=== PATIENT | male | born 1995 | race Hispanic/Latino ===

== ENCOUNTER 2025-01-12 21:50 | Emergency (ER) | payer BC, MEDICAID ==
[~2025-01-12] VITALS: Ht 170.2 cm; Wt 86.2 kg
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
[2025-01-12] MEDS: 0.9% NACL 500ML IV.SOLN 500 ML IV ONE (22:26)
[2025-01-12 22:34] LABS: BASOPHILS # (AUTO) 0.02 K/uL (0.00-0.20); BASOPHILS % (AUTO) 0.3 % (0.0-5.0); EOSINOPHILS # (AUTO) 0.03 K/uL (0.00-0.70); EOSINOPHILS % (AUTO) 0.5 % (0.0-8.0); HEMATOCRIT 41.9 % (42-54); IMMATURE GRANULOCYTE ABSOLUTE 0.02 K/uL (0-1); LYMPHOCYTES # (AUTO) 0.9 K/uL (1.0-4.8); LYMPHOCYTES % (AUTO) 15.3 % (21.0-51.0); MEAN CORPUSCULAR HGB CONC 34.1 g/dL (32.0-36.0); MONOCYTES # (AUTO) 0.6 K/uL (0.1-1.0); MONOCYTES % (AUTO) 9.6 % (3.0-13.0); NEUTROPHILS # (AUTO) 4.4 K/uL (1.8-7.7); PLATELET COUNT (AUTO) 312 K/uL (130-400); RED BLOOD CELL COUNT(AUTO) 4.76 MIL/uL (4.50-6.20); WHITE BLOOD COUNT (AUTO) 5.9 K/uL (4.8-10.8)
[2025-01-12 22:46] LABS: CREATININE 0.8 mg/dL (0.5-1.3); POTASSIUM 3.7 mmol/L (3.5-5.1)
[2025-01-12] MEDS: teTANUS/diphthERIA TOXOID [ADULT] 0.5 ML VIAL IM ONE (23:18)
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
--- NOTE | 2025-01-12 23:29 | HMCIMG ---
ANKLE COMP 3VWS RT HISTORY: Injury COMPARISON: None TECHNIQUE: 3 images of the right ankle were obtained. FINDINGS: Nondisplaced oblique fracture is seen of the distal fibula. Soft tissue swelling is seen. IMPRESSION: 1. Findings as described above.
[2025-01-12] MEDS: AMOX/CLAV 875/125MG TAB PO ONE (23:33)
[2025-01-13 00:15] VITALS: BP 112/65; PULSE 98; RESP 18; TEMP 98.5; O2SAT 99
--- NOTE | 2025-01-13 00:18 | NUR ---
SHORT POSTERIOR SPLINT APPLIED TO RLE, SENSATION INTACT, NEUROVASCULAR STATUS REMAINS AT BASELINE, CAP REFILL LESS THAN 3 SECONDS, DENIES PAIN SP SPLINT APPLICATION, SKIN PINK WARM AND DRY. EDUCATION PROVIDED TO PATIENT REGARDING SPINT AFTER CARE AND THE USE OF CRUTCHES. PT STATES HE HAS CRUTCHES AT HOME TO USE ONCE RELEASED FROM [facility]. CONTINUES IN CUSTODY OF [facility] AT THIS TIME
[2025-01-13] MEDS ORDERED: AMOX-426 PO (00:21)
[2025-01-13] MEDS: ketOROlac 30MG VIAL (30MG/ML) IM ONE (00:28)
== END 2025-01-13 00:38 ==
LOC: EDH 21:50 → EEVIPCON 21:50 → EDH 01-13 00:38
DX: S02.2XXA Fracture of nasal bones, initial encounter for closed fracture (principal); S82.832A Other fracture of upper and lower end of left fibula, initial encounter for closed fracture; S40.212A Abrasion of left shoulder, initial encounter; Y04.1XXA Assault by human bite, initial encounter; Y93.89 Activity, other specified; Y92.89 Other specified places as the place of occurrence of the external cause; Y99.8 Other external cause status
CPT/HCPCS: 99284; 96360; 70486; 80048; 85025; 36415; 90714; 73610; 90471; 96372; J7040; J1885